=== PATIENT | female | born 1955 | race American Indian/Alaskan Native ===

== ENCOUNTER 2019-12-31 12:21 | Outpatient (CLI) | payer OTHER ==
--- NOTE | 2019-12-31 14:13 | XRay Report ---
RIGHT KNEE 2 VIEWS INDICATION / CLINICAL INFORMATION: PAIN IN RIGHT KNEE COMPARISON: FINDINGS: BONES / JOINT(S): No acute fracture or subluxation. There is mild narrowing of the medial compartment with marginal osteophyte formation. This has shown mild progression since the prior study SOFT TISSUES: No significant abnormality. ADDITIONAL FINDINGS: None. Signer Name: Jareth Quinteros MD Signed: 12/31/2019 2:09 PM Workstation Name: [id number]
== END 2019-12-31 12:22 | disposition home or self-care (01) ==
LOC: XRAY 12:21
PROVIDERS: ATTEND Orthopaedic Surgery
DX: M25.761 Osteophyte, right knee (principal); M17.11 Unilateral primary osteoarthritis, right knee

== ENCOUNTER 2020-04-29 10:20 | Outpatient (CLI) | payer OTHER ==
--- NOTE | 2020-04-29 11:43 | XRay Report ---
LUMBAR SPINE 4 VIEWS INDICATION / CLINICAL INFORMATION: BACK PAIN. COMPARISON: None available. FINDINGS: Mild anterolisthesis of L4 on L5. Degenerative change at L5-S1. No other significant skeletal abnorma lity. Signer Name: Miguel A Christianson MD FACR Signed: 04/29/2020 11:39 AM Workstation Name: [id number]
== END 2020-04-29 10:21 | disposition home or self-care (01) ==
LOC: XRAY 10:20
PROVIDERS: ATTEND Internal Medicine
DX: M47.817 Spondylosis without myelopathy or radiculopathy, lumbosacral region (principal); M43.16 Spondylolisthesis, lumbar region; G47.33 Obstructive sleep apnea (adult) (pediatric); F32.9 Major depressive disorder, single episode, unspecified; M19.90 Unspecified osteoarthritis, unspecified site
CPT/HCPCS: 72100